=== PATIENT | female | born 1975 | race Caucasian/White ===

== ENCOUNTER 2021-05-03 08:58 | Emergency (ER) | payer MEDICAID ==
[~2021-05-03] VITALS: Ht 154.9 cm; Wt 121.4 kg
[2021-05-03 09:08] VITALS: BP 192/111
== END 2021-05-03 10:11 | disposition home or self-care (01) ==
LOC: ER 08:58
DX: I10 Essential (primary) hypertension (principal); I49.9 Cardiac arrhythmia, unspecified; Z88.6 Allergy status to analgesic agent; Z88.8 Allergy status to other drugs, medicaments and biological substances
CPT/HCPCS: 93005; 99283